=== PATIENT | male | born 1960 | race Caucasian/White ===

== ENCOUNTER 2024-06-16 12:46 | Emergency (ER) | payer OTHER, SELFPAY ==
[2024-06-16 12:52] VITALS: BP 127/66; PULSE 92; RESP 18; TEMP 36.9; O2SAT 97; BMI 29.0
--- NOTE | 2024-06-16 13:13 | ED.GENADULT ---
HPI - General Adult General Chief complaint: Skin/Abscess/Foreign Body Stated complaint: sore on bottom of right foot x 3 weeks Time Seen by Provider: 06/16/24 12:51 Source: patient Mode of arrival: ambulatory Limitations: no limitations History of Present Illness HPI narrative: 64-year-old male, history of diabetes, presenting today with an ulcer on the bottom of his foot. He states has been there for several weeks. He has seen his primary care provider about it. He states that his primary care provider said that if he becomes more sore that he should follow up in the ER. Patient states that he feels it is getting better, he states that the size of it is actually improving getting smaller, however he states that it is more painful. States that he uses bacitracin daily and changes his dressings 3 times per day. He states that he is also instructed to follow up in the Wound Clinic, unfortunately there are no openings for several weeks. He denies any systemic symptoms. Related Data Home Medications ?Medication ?Instructions ?Recorded ?Confirmed atorvastatin 40 mg tablet 40 mg PO DAILY 06/16/24 06/16/24 dulaglutide 1.5 mg/0.5 mL 1.5 mg subcut 06/16/24 subcutaneous pen injector (TrulicSouche) fluticasone furoate 100 inhalation DAILY 06/16/24 mcg-vilanterol 25 mcg/dose inhalation powder (Breo Ellipta) gabapentin 300 mg capsule 300 mg PO 3XD 06/16/24 06/16/24 lisinopril 20 mg tablet 20 mg PO DAILY 06/16/24 06/16/24 metformin 500 mg tablet,extended 1,000 mg PO BID 06/16/24 06/16/24 release 24 hr nizatidine 150 mg capsule 150 mg PO BID 06/16/24 06/16/24 semaglutide 0.25 mg or 0.5 mg (2 0.5 mg subcut 06/16/24 mg/3 mL) subcutaneous pen injector (Ozemp[employer]bek [employer] Rica) sulfamethoxazole 800 1 tab PO BID 06/16/24 06/16/24 mg-trimethoprim 160 mg tablet Allergies Allergy/AdvReac Type Severity Reaction Status Date / Time penicillin V Allergy Verified 06/16/24 12:55 Review of Systems Status of ROS: Reports: 10 or more systems reviewed and unremarkable except as noted in History and below PFSH PFSH Social History Smoking Status: Never smoker Do you use any of these nicotine containing products: None Second hand tobacco smoke exposure: No How often do you have a drink containing alcohol: monthly or less AUDIT-C Alcohol total score: 1 Non-prescribed substance use: denies use Exam Narrative: Exam Narrative: Well-nourished well-developed patient in no acute distress. Alert and oriented. Answers questions appropriately. Mood and affect are appropriate. Thoughts are goal oriented and rational. No tangential or magical thinking noted. Patient speaks in full sentences without needing to catch his breath. HEENT: Normocephalic atraumatic. Pupils are equally round reactive to light. Extraocular muscles are intact. Conjunctivae are moist without any icterus noted. Moist mucous membranes. Extremities: Patient has a stage IV ulcer on the ball of the foot on the right side just proximal to the big toe on the plantar surface. The ulcers about the size of a nickel. He has significant surrounding calluses that are thick, does not appear infected. Const: Vital Signs, click to edit/add: Vital Signs - 24 hr 06/16/24 12:52 Temperature 98.4 F Pulse Rate [Left P ulse Oximeter] 92 Respiratory Rate 18 Blood Pressure [Le ft Upper Arm] 127/66 Pulse Oximetry 97 Oxygen Delivery Me thod Room Air Course Course ED Course: Attempted calling the Wound Clinic who confirmed that they likely have no openings for several weeks. Spoke to surgeon who stated that the generally do not treat diabetic foot ulcers. Attempted to call wound clinic at [facility] [place]- they do have an opening next week on Thursday. Therefore patient will call and register himself for that appointment. In the meantime, we did go ahead and x-ray the right foot- this was unremarkable for any bony damage. Vital Signs Vital signs: Initial Vital Signs Temperature 98.4 F 06/16/24 12:52 Temperature Source Temporal Artery Scan 06/16/24 12:52 Pulse Rate 92 06/16/24 12:52 Pulse Rhythm Regular 06/16/24 12:52 Pulse Strength 3+ Normal 06/16/24 12:52 Respiratory Rate 18 06/16/24 12:52 Blood Pressure 127/66 06/16/24 12:52 Blood Pressure Mean 86 06/16/24 12:52 Blood Pressure Position Sitting 06/16/24 12:52 Pulse Oximetry 97 06/16/24 12:52 Oxygen Delivery Method Room Air 06/16/24 12:52 Vital Signs Temperature 98.4 F 06/16/24 12:52 Pulse Rate 92 06/16/24 12:52 Respiratory Rate 18 06/16/24 12:52 Blood Pressure 127/66 06/16/24 12:52 Pulse Oximetry 97 06/16/24 12:52 Oxygen Delivery Method Room Air 06/16/24 12:52 Temperature 98.4 F 06/16/24 12:52 Pulse Rate 92 06/16/24 12:52 Respiratory Rate 18 06/16/24 12:52 Blood Pressure 127/66 06/16/24 12:52 Pulse Oximetry 97 06/16/24 12:52 Oxygen Delivery Method Room Air 06/16/24 12:52 Medical Decision Making MDM Narrative Medical decision making narrative: Diabetic foot ulcer. Will follow up with [facility] wound clinic. Imaging Data X-ray foot: Attestation: I have reviewed the pertinent imaging results. Radiologist's impression: Right foot 2 views Comparison: None Findings: Bones: No definite evidence of fracture or destructive osseous changes. Well-formed plantar heel spur. Joint spaces: Prominent osteophytes at the 1st MTP joint consistent with osteoarthritis. Soft tissues: Soft tissue swelling with lucency at the great toe near the 1st MTP level. Impression: Soft tissue swelling with lucency at the plantar aspect of the 1st MTP joint level consistent with the given history of ulceration. No radiographic evidence of osteomyelitis. Discharge Plan Discharge Clinical Impression: Diabetic foot ulcer Patient Disposition: Home, Self-Care Condition: Stable Additional Instructions: Continue doing the dressing changes as you are doing them. Your x-ray looked good today, there is no evidence of any bony damage underneath the ulcer. Follow-up with the [facility] wound clinic. Prescriptions: No Action atorvastatin 40 mg tablet 40 mg PO DAILY lisinopril 20 mg tablet 20 mg PO DAILY nizatidine 150 mg capsule 150 mg PO BID sulfamethoxazole-trimethoprim 800-160 mg tablet 1 tab PO BID gabapentin 300 mg capsule 300 mg PO 3XD metformin 500 mg tablet extended release 24 hr 1,000 mg PO BID fluticasone furoate-vilanterol [Breo Ellipta] 100-25 mcg/dose blister with device inhalation DAILY Trulicity 1.5 mg/0.5 mL pen injector 1.5 mg subcut Ozempic 0.25 mg or 0.5 mg (2 mg/3 mL) pen injector 0.5 mg subcut Follow Up/Referrals: Barry Benjamin MD [Primary Care Provider] - Stand Alone Forms: [facility] Info Instructions
--- NOTE | 2024-06-16 13:14 | CRLHL7_ITS ---
For Patients: As a result of the Cures Act, medical imaging exams and procedure reports are released immediately into your electronic medical record. You may view this report before your referring provider. If you have questions, please contact your health care provider. Indication: Right foot ulceration Technique: Right foot 2 views Comparison: None Findings: Bones: No definite evidence of fracture or destructive osseous changes. Well-formed plantar heel spur. Joint spaces: Prominent osteophytes at the 1st MTP joint consistent with osteoarthritis. Soft tissues: Soft tissue swelling with lucency at the great toe near the 1st MTP level. Impression: Soft tissue swelling with lucency at the plantar aspect of the 1st MTP joint level consistent with the given history of ulceration. No radiographic evidence of osteomyelitis. Dictated by Constantino Brothers MD @ 06/16/2024 1:55:56 PM (Electronically Signed)
[2024-06-16 14:21] VITALS: BP 134/75; PULSE 86; RESP 14
== END 2024-06-16 14:21 | disposition home or self-care (01) ==
PROVIDERS: Emergency Provider Family Medicine; PCP Family Medicine
DX: E11.621 Type 2 diabetes mellitus with foot ulcer (principal)
CPT/HCPCS: 73620; 99284

== ENCOUNTER 2024-06-22 13:04 | Outpatient (CLI) | payer OTHER, SELFPAY | END 2024-06-22 13:05 | disposition home or self-care (01) | LOC: WOUND 13:04 | PROVIDERS: PCP Family Medicine; Visit Provider Surgery | DX: E11.621 Type 2 diabetes mellitus with foot ulcer (principal); E11.65 Type 2 diabetes mellitus with hyperglycemia; E11.40 Type 2 diabetes mellitus with diabetic neuropathy, unspecified; L97.515 Non-pressure chronic ulcer of other part of right foot with muscle involvement without evidence of necrosis; I10 Essential (primary) hypertension; Z79.4 Long term (current) use of insulin; Z79.84 Long term (current) use of oral hypoglycemic drugs | CPT/HCPCS: 11043; 87070; 87186; G0463 ==

== ENCOUNTER 2024-06-29 13:43 | Outpatient (CLI) | payer OTHER, SELFPAY | END 2024-06-29 13:44 | disposition home or self-care (01) | LOC: WOUND 13:43 | PROVIDERS: PCP Family Medicine; Visit Provider Surgery | DX: E11.621 Type 2 diabetes mellitus with foot ulcer (principal); E11.40 Type 2 diabetes mellitus with diabetic neuropathy, unspecified; L97.515 Non-pressure chronic ulcer of other part of right foot with muscle involvement without evidence of necrosis; Z79.4 Long term (current) use of insulin; B95.61 Methicillin susceptible Staphylococcus aureus infection as the cause of diseases classified elsewhere | CPT/HCPCS: 11042 ==

== ENCOUNTER 2024-07-06 14:05 | Outpatient (CLI) | payer OTHER, SELFPAY | END 2024-07-06 14:06 | disposition home or self-care (01) | LOC: WOUND 14:05 | PROVIDERS: PCP Family Medicine; Visit Provider Surgery | DX: E11.621 Type 2 diabetes mellitus with foot ulcer (principal); E11.40 Type 2 diabetes mellitus with diabetic neuropathy, unspecified; E11.65 Type 2 diabetes mellitus with hyperglycemia; L97.515 Non-pressure chronic ulcer of other part of right foot with muscle involvement without evidence of necrosis; Z79.4 Long term (current) use of insulin | CPT/HCPCS: 97597 ==

== ENCOUNTER 2024-07-13 15:03 | Outpatient (CLI) | payer OTHER, SELFPAY | END 2024-07-13 15:04 | disposition home or self-care (01) | LOC: WOUND 15:03 | PROVIDERS: PCP Family Medicine; Visit Provider Surgery | DX: E11.621 Type 2 diabetes mellitus with foot ulcer (principal); E11.40 Type 2 diabetes mellitus with diabetic neuropathy, unspecified; L97.515 Non-pressure chronic ulcer of other part of right foot with muscle involvement without evidence of necrosis; Z79.4 Long term (current) use of insulin; Z79.84 Long term (current) use of oral hypoglycemic drugs | CPT/HCPCS: 97597 ==

== ENCOUNTER 2024-07-20 13:55 | Outpatient (CLI) | payer OTHER, SELFPAY | END 2024-07-20 13:56 | disposition home or self-care (01) | PROVIDERS: PCP Family Medicine; Visit Provider Surgery | DX: E11.621 Type 2 diabetes mellitus with foot ulcer (principal); E11.40 Type 2 diabetes mellitus with diabetic neuropathy, unspecified; L97.515 Non-pressure chronic ulcer of other part of right foot with muscle involvement without evidence of necrosis; Z79.4 Long term (current) use of insulin | CPT/HCPCS: 11042 ==

== ENCOUNTER 2024-07-27 13:38 | Outpatient (CLI) | payer OTHER, SELFPAY | END 2024-07-27 13:39 | disposition home or self-care (01) | LOC: WOUND 13:38 | PROVIDERS: PCP Family Medicine; Visit Provider Surgery | DX: E11.621 Type 2 diabetes mellitus with foot ulcer (principal); E11.40 Type 2 diabetes mellitus with diabetic neuropathy, unspecified; L97.515 Non-pressure chronic ulcer of other part of right foot with muscle involvement without evidence of necrosis; Z79.4 Long term (current) use of insulin | CPT/HCPCS: 11042 ==

== ENCOUNTER 2024-08-10 13:43 | Outpatient (CLI) | payer OTHER, SELFPAY | END 2024-08-10 13:44 | disposition home or self-care (01) | LOC: WOUND 13:43 | PROVIDERS: PCP Family Medicine; Visit Provider Surgery | DX: E11.621 Type 2 diabetes mellitus with foot ulcer (principal); E11.40 Type 2 diabetes mellitus with diabetic neuropathy, unspecified; L97.512 Non-pressure chronic ulcer of other part of right foot with fat layer exposed; Z79.4 Long term (current) use of insulin | CPT/HCPCS: 11042 ==

== ENCOUNTER 2024-08-24 13:42 | Outpatient (CLI) | payer OTHER, SELFPAY | END 2024-08-24 13:43 | disposition home or self-care (01) | PROVIDERS: PCP Family Medicine; Visit Provider Surgery | DX: E11.621 Type 2 diabetes mellitus with foot ulcer (principal); E11.40 Type 2 diabetes mellitus with diabetic neuropathy, unspecified; L97.512 Non-pressure chronic ulcer of other part of right foot with fat layer exposed; Z79.4 Long term (current) use of insulin | CPT/HCPCS: 11042 ==

== ENCOUNTER 2024-08-31 13:51 | Outpatient (CLI) | payer OTHER, SELFPAY | END 2024-08-31 13:52 | disposition home or self-care (01) | LOC: WOUND 13:51 | PROVIDERS: PCP Family Medicine; Visit Provider Family Medicine | DX: E11.621 Type 2 diabetes mellitus with foot ulcer (principal); E11.40 Type 2 diabetes mellitus with diabetic neuropathy, unspecified; L97.512 Non-pressure chronic ulcer of other part of right foot with fat layer exposed; Z79.4 Long term (current) use of insulin | CPT/HCPCS: 11042 ==

== ENCOUNTER 2024-09-07 13:59 | Outpatient (CLI) | payer OTHER, SELFPAY | END 2024-09-07 14:00 | disposition home or self-care (01) | LOC: WOUND 13:59 | PROVIDERS: PCP Family Medicine; Visit Provider Physician Assistant | DX: E11.621 Type 2 diabetes mellitus with foot ulcer (principal); E11.40 Type 2 diabetes mellitus with diabetic neuropathy, unspecified; L97.512 Non-pressure chronic ulcer of other part of right foot with fat layer exposed; Z79.4 Long term (current) use of insulin | CPT/HCPCS: 97597 ==

== ENCOUNTER 2024-09-14 13:36 | Outpatient (CLI) | payer OTHER, SELFPAY | END 2024-09-14 13:37 | disposition home or self-care (01) | LOC: WOUND 13:36 | PROVIDERS: PCP Family Medicine; Visit Provider Surgery | DX: E11.621 Type 2 diabetes mellitus with foot ulcer (principal); E11.40 Type 2 diabetes mellitus with diabetic neuropathy, unspecified; L97.512 Non-pressure chronic ulcer of other part of right foot with fat layer exposed; Z79.4 Long term (current) use of insulin | CPT/HCPCS: 11042; 87070; 87186 ==

== ENCOUNTER 2024-09-28 13:41 | Outpatient (CLI) | payer OTHER, SELFPAY | END 2024-09-28 13:42 | disposition home or self-care (01) | LOC: WOUND 13:41 | PROVIDERS: PCP Family Medicine; Visit Provider Surgery | DX: E11.621 Type 2 diabetes mellitus with foot ulcer (principal); E11.40 Type 2 diabetes mellitus with diabetic neuropathy, unspecified; L97.512 Non-pressure chronic ulcer of other part of right foot with fat layer exposed; Z79.4 Long term (current) use of insulin | CPT/HCPCS: 97597 ==

== ENCOUNTER 2024-10-05 13:40 | Outpatient (CLI) | payer OTHER, SELFPAY | END 2024-10-05 13:41 | disposition home or self-care (01) | LOC: WOUND 13:40 | PROVIDERS: PCP Family Medicine; Visit Provider Physician Assistant | DX: E11.621 Type 2 diabetes mellitus with foot ulcer (principal); E11.40 Type 2 diabetes mellitus with diabetic neuropathy, unspecified; L97.512 Non-pressure chronic ulcer of other part of right foot with fat layer exposed; Z79.4 Long term (current) use of insulin; Z79.84 Long term (current) use of oral hypoglycemic drugs | CPT/HCPCS: 97597 ==

== ENCOUNTER 2024-10-19 13:52 | Outpatient (CLI) | payer OTHER, SELFPAY | END 2024-10-19 13:53 | disposition home or self-care (01) | LOC: WOUND 13:52 | PROVIDERS: PCP Family Medicine; Visit Provider Surgery | DX: E11.621 Type 2 diabetes mellitus with foot ulcer (principal); E11.40 Type 2 diabetes mellitus with diabetic neuropathy, unspecified; L97.511 Non-pressure chronic ulcer of other part of right foot limited to breakdown of skin; Z79.84 Long term (current) use of oral hypoglycemic drugs; Z79.85 Long-term (current) use of injectable non-insulin antidiabetic drugs | CPT/HCPCS: 97597 ==

== ENCOUNTER 2024-10-26 13:41 | Outpatient (CLI) | payer OTHER, SELFPAY | END 2024-10-26 13:42 | disposition home or self-care (01) | LOC: WOUND 13:41 | PROVIDERS: PCP Family Medicine; Visit Provider Surgery | DX: E11.40 Type 2 diabetes mellitus with diabetic neuropathy, unspecified (principal); Z86.31 Personal history of diabetic foot ulcer; Z79.4 Long term (current) use of insulin; Z79.84 Long term (current) use of oral hypoglycemic drugs | CPT/HCPCS: G0463 ==